=== PATIENT | male | born 1995 | race Caucasian/White ===

== ENCOUNTER 2016-12-27 23:08 | Emergency (ER) | payer OTHER ==
[~2016-12-27] VITALS: Ht 180.3 cm; Wt 74.8 kg
[~2016-12-27 23:08] MED LIST: AMOXICILLIN500 MG PO; IBUPROFEN600 MG PO; PHENERGAN25 M1 PO; VYVANSE60 MG PO
[2016-12-27 23:27] VITALS: BP 131/58
[2016-12-28] MEDS ORDERED: ANAPROX DS550 MG PO (00:26)
== END 2016-12-28 00:32 | disposition home or self-care (01) ==
LOC: ED 23:08
DX: S60.221A Contusion of right hand, initial encounter (principal); F17.200 Nicotine dependence, unspecified, uncomplicated; Z79.899 Other long term (current) drug therapy; W22.8XXA Striking against or struck by other objects, initial encounter; Y93.9 Activity, unspecified; Y92.9 Unspecified place or not applicable; Y99.9 Unspecified external cause status

== ENCOUNTER 2018-05-07 17:32 | Emergency (ER) | payer OTHER ==
[~2018-05-07] VITALS: Ht 180.3 cm; Wt 72.6 kg
[2018-05-07 17:32] VITALS: BP 119/59
[~2018-05-07 17:32] MED LIST changes: +ANAPROX DS550 MG PO
[2018-05-07] MEDS ORDERED: NAPROSYN500 MG PO (19:29)
[2018-05-07] MEDS ORDERED: CEPHALEXIN500 M1 PO (19:29)
== END 2018-05-07 19:39 | disposition home or self-care (01) ==
LOC: ED 17:32
DX: S62.621B Displaced fracture of middle phalanx of left index finger, initial encounter for open fracture (principal); S61.213A Laceration without foreign body of left middle finger without damage to nail, initial encounter; S61.215A Laceration without foreign body of left ring finger without damage to nail, initial encounter; Z79.899 Other long term (current) drug therapy; X58.XXXA Exposure to other specified factors, initial encounter; Y93.89 Activity, other specified; Y92.89 Other specified places as the place of occurrence of the external cause; Y99.8 Other external cause status

== ENCOUNTER → 2018-05-11 | Outpatient (CLI) | payer OTHER ==
[~2018-05-11] MED LIST changes: +CEPHALEXIN500 M1 PO; +NAPROSYN500 MG PO
== END | disposition home or self-care (01) ==
LOC: WOUNDCARE 01:32
DX: S61.211A Laceration without foreign body of left index finger without damage to nail, initial encounter (principal); S61.213A Laceration without foreign body of left middle finger without damage to nail, initial encounter; F17.290 Nicotine dependence, other tobacco product, uncomplicated; W27.0XXA Contact with workbench tool, initial encounter; Y93.89 Activity, other specified; Y92.89 Other specified places as the place of occurrence of the external cause; Y99.8 Other external cause status

== ENCOUNTER → 2018-05-19 | Outpatient (CLI) | payer OTHER | END | disposition home or self-care (01) | LOC: WOUNDCARE 02:47 | DX: S61.211D Laceration without foreign body of left index finger without damage to nail, subsequent encounter (principal); S61.213D Laceration without foreign body of left middle finger without damage to nail, subsequent encounter; F17.290 Nicotine dependence, other tobacco product, uncomplicated; X58.XXXD Exposure to other specified factors, subsequent encounter ==

== ENCOUNTER 2019-05-29 12:20 | Emergency (ER) | payer OTHER ==
[~2019-05-29] VITALS: Ht 177.8 cm; Wt 83.9 kg
[2019-05-29 12:21] VITALS: BP 133/70
[2019-05-29] MEDS ORDERED: CEPHALEXIN500 M1 PO (13:26)
== END 2019-05-29 13:40 | disposition home or self-care (01) ==
LOC: ED 12:20
DX: S61.012A Laceration without foreign body of left thumb without damage to nail, initial encounter (principal); Z79.2 Long term (current) use of antibiotics; Z79.899 Other long term (current) drug therapy; W25.XXXA Contact with sharp glass, initial encounter; Y93.89 Activity, other specified; Y92.89 Other specified places as the place of occurrence of the external cause; Y99.8 Other external cause status

== ENCOUNTER 2024-02-21 00:52 | Emergency (ER) | payer BC ==
[~2024-02-21] VITALS: Ht 175.2 cm; Wt 86.2 kg
[2024-02-21] MEDS ORDERED: Tetracaine Hydrochloride 0.5% 4 ML BOT OPH ONE (01:05)
[2024-02-21] MEDS ORDERED: FLUORESCEIN SODIUM 1 MG STRIP OPH ONE (01:05)
[2024-02-21 01:07] VITALS: BP 124/67
[2024-02-21] MEDS ORDERED: Dexamethasone/Tobramycin OPHTHALMIC 2.5 ML BOTTLE OPH ONE (01:20)
== END 2024-02-21 01:45 | disposition home or self-care (01) ==
LOC: ED 00:52
DX: T15.91XA Foreign body on external eye, part unspecified, right eye, initial encounter (principal); S05.01XA Injury of conjunctiva and corneal abrasion without foreign body, right eye, initial encounter; F90.9 Attention-deficit hyperactivity disorder, unspecified type; W45.8XXA Other foreign body or object entering through skin, initial encounter; Y93.89 Activity, other specified; Y92.009 Unspecified place in unspecified non-institutional (private) residence as the place of occurrence of the external cause; Y99.8 Other external cause status